=== PATIENT | male | born 1995 | race Caucasian/White ===

== ENCOUNTER 2024-05-17 09:29 | Outpatient (CLI) | payer OTHER, SELFPAY ==
--- NOTE | ~2024-05-17 | XR_ITS ---
EXAMINATION: XR chest 2V 05/17/2024 09:42 INDICATION: Cough PROCEDURE: 2 view chest COMPARISON: 12/23/2008. FINDINGS: The lungs are clear. The cardiomediastinal silhouette is within normal limits. There are no pleural effusions. There is no pneumothorax suspected. IMPRESSION: 1: NO ACUTE CARDIOPULMONARY DISEASE. Reviewed, dictated and finalized at location B.
== END 2024-05-17 09:30 | disposition home or self-care (01) ==
LOC: MICIMG 09:35
PROVIDERS: PCP Nurse Practitioner Family; Visit Provider Nurse Practitioner Family
DX: R05.9 Cough, unspecified (principal)
CPT/HCPCS: 71046

== ENCOUNTER 2024-06-14 12:32 | Emergency (ER) | payer OTHER, SELFPAY ==
[2024-06-14 12:53] VITALS: BP 102/73; PULSE 101; RESP 20; TEMP 37.3; O2SAT 99
--- NOTE | 2024-06-14 13:31 | ED_ITS ---
HPI - URI/Sore Throat General Chief Complaint: Upper Respiratory Infection Stated Complaint: Cough Time Seen by Provider: 06/14/24 13:31 Source: patient, RN notes reviewed and old records reviewed Mode of arrival: ambulatory Limitations: no limitations Related Data Allergies Allergy/AdvReac Type Severity Reaction Status Date / Time Penicillins Allergy Unknown Unknown Verified 06/14/24 12:39 Sulfa (Sulfonamide Allergy Unknown Unknown Verified 06/14/24 12:39 Antibiotics) Review of Systems Review of Systems: All systems reviewed & are unremarkable except as noted in HPI and below Constitutional: Constitutional: Reports no additional constitutional complaints ENT: Reports system reviewed and no additional complaints, except as documented Cardiovascular: Cardiovascular: Reports no additional cardiovascular complaints Respiratory: Respiratory: Reports no additional respiratory complaints Gastrointestinal: Gastrointestinal: Reports no additional gastrointestinal complaints [facility], [facility] Family History Family History Father Patient's father is in good health Mother Family history of lung cancer, Onset Age: 58 Family history of malignant neoplasm of breast in first degree relative, Onset Age: 58 Social History Social History Smoking status: Never smoker Second hand tobacco smoke exposure: No Alcohol intake: never Comments At the time of my signature, I reviewed and agree with the nursing past medical, surgical, social, and family history. There is no relevant family history pertinent to the patient complaint. Exam Const: General: cooperative, no acute distress, alert and awake Orientation/consciousness: oriented to person, oriented to place and oriented to time HENMT: Head: normal to inspection Resp: Effort & Inspection: normal respiratory effort and able to speak in complete sentences Auscultation: clear to auscultation bilaterally, no crackles, no rales, no rhonchi and no wheezes Cardio: Palpation: normal PMI Rate: regular rate Rhythm: regular rhythm Heart sounds: S1 normal heart sound present and S2 normal heart sound present Neuro: General: oriented to person, oriented to place and oriented to time Cranial nerves: Yes CN's II-XII intact bilaterally Psych: Appearance: grossly normal Thought process: Normal thought process present Insight: Good insight present (Psych) Judgement: Good judgement present (Psych) Course Course Level of Care: Express Care Visit Vital Signs Vital signs: Vital Signs Temperature 99.1 F 06/14/24 12:53 Pulse Rate 101 H 06/14/24 12:53 Respiratory Rate 20 06/14/24 12:53 Blood Pressure 102/73 06/14/24 12:53 Pulse Oximetry 99 06/14/24 12:53 Oxygen Delivery Room Air 06/14/24 12:53 Temperature 99.1 F 06/14/24 12:53 Pulse Rate 101 H 06/14/24 12:53 Respiratory Rate 20 06/14/24 12:53 Blood Pressure 102/73 06/14/24 12:53 Pulse Oximetry 99 06/14/24 12:53 Oxygen Delivery Room Air 06/14/24 12:53 Reviewed Discharge Plan Discharge Clinical Impression: Pneumonia Patient Disposition: Home, Self-Care Condition: Stable Instructions: Antibiotic Form, Community Acquired Pneumonia (DC) Additional Instructions: Take medications as prescribed. Follow-up care provider. Emergency department for new or worse symptoms Patient Language: Romansh Prescriptions: New azithromycin 250 mg tablet See Rx Instructions .ROUTE .COMPLEX Qty: 6 0RF Rx Instructions: For 250 mg dose pack: take 500 mg today (day 1), then 250 mg for 4 days (days 2-5) Follow-up/Referrals: Raina Soto APRN [Primary Care Provider] - 1 Week Stand Alone Forms: Work/School Release IP Time of Disposition: 13:47
== END 2024-06-14 14:00 | disposition home or self-care (01) ==
PROVIDERS: Emergency Provider Nurse Practitioner Family; PCP Nurse Practitioner Family
DX: J18.9 Pneumonia, unspecified organism (principal)
CPT/HCPCS: 99213; G0463